=== PATIENT | male | born 1995 | race Caucasian/White ===

== ENCOUNTER → 2019-10-25 11:02 | Outpatient (BNVA) | payer SELFPAY | PROVIDERS: Family Provider Family Medicine; PCP Family Medicine; Visit Provider Nurse Practitioner Family | DX: J32.9 Chronic sinusitis, unspecified (principal) | CPT/HCPCS: 87081; 87880 ==

== ENCOUNTER → 2020-06-09 11:14 | Outpatient (BNVA) | payer OTHER, SELFPAY | PROVIDERS: Family Provider Family Medicine; PCP Family Medicine; Visit Provider Nurse Practitioner Family | DX: Z11.59 Encounter for screening for other viral diseases (principal) | CPT/HCPCS: 87635 ==

== ENCOUNTER → 2020-06-13 11:44 | Outpatient (BNVA) | payer OTHER, SELFPAY | PROVIDERS: Family Provider Family Medicine; PCP Family Medicine | DX: Z11.59 Encounter for screening for other viral diseases (principal) | CPT/HCPCS: 87635 ==

== ENCOUNTER → 2020-07-24 11:07 | Outpatient (BNVA) | payer OTHER, SELFPAY | PROVIDERS: Family Provider Family Medicine; PCP Family Medicine; Visit Provider Nurse Practitioner Family | DX: Z20.828 Contact with and (suspected) exposure to other viral communicable diseases (principal); J06.9 Acute upper respiratory infection, unspecified | CPT/HCPCS: 87635 ==

== ENCOUNTER → 2021-03-06 14:08 | Outpatient (BNVA) | payer OTHER, SELFPAY | PROVIDERS: Family Provider Family Medicine; PCP Family Medicine; Visit Provider Nurse Practitioner | DX: Z20.822 Contact with and (suspected) exposure to COVID-19 (principal); B34.9 Viral infection, unspecified | CPT/HCPCS: 87635 ==

== ENCOUNTER 2022-06-26 13:05 | Emergency (ER) | payer SELFPAY ==
[2022-06-26 13:09] VITALS: BP 151/95; PULSE 110; RESP 12; TEMP 36.8; O2SAT 97; BMI 35.2
--- NOTE | 2022-06-26 13:32 | USR_ITS ---
US/US soft tissue/extremity [id number] PROCEDURE INFORMATION: Exam: US Unlisted Ultrasound Procedure Exam date and time: 06/26/2022 1:53 PM Age: 27 years old Clinical indication: Symptoms: Pain, swelling, redness lt groin; Additional info: Swelling left groin TECHNIQUE: Imaging protocol: Unlisted ultrasound procedure (eg, diagnostic, interventional). COMPARISON: No relevant prior studies available. FINDINGS: Procedural imagin.7 x 1.1 x 0.4 cm low-density lesion in the left groin with no internal vascularity with some intrinsic fluid movement on cine images consistent with fluid collection with or without infection. IMPRESSION: 1.7 x 1.1 x 0.4 cm low-density lesion in the left groin with no internal vascularity with some intrinsic fluid movement on cine images most consistent with fluid collection with or without infection.
--- NOTE | 2022-06-26 13:40 | W.ED.GENADLT ---
HPI - General Adult General: Chief complaint: General Medical Stated complaint: Knot in groin area, phillip Time Seen by Provider: 06/26/22 13:26 History of Present Illness: 27-year-old male presents with swelling/knot in the left groin area. He reports that he has had in the past that resolved. That it started, small couple days ago and is now enlarged. Reports that now it seems little bit more red and painful. Patient initially thought maybe it was a swollen lymph node but is now unsure what it might be. Associated symptoms: Deny chest pain, dyspnea, headache(s), nausea, palpitations or vomiting Review of Systems Const: Denies: fever(s) Card: Denies: chest pain or palpitations Resp: Denies: dyspnea or productive cough GI: Denies: abdominal pain, nausea or vomiting : Denies: flank pain, difficulty urinating or dysuria Musc: Denies: extremity pain or extremity swelling Skin/Breast: Reports: erythema, skin swelling and other (Please see HPI) Neuro: Denies: headache(s) or dizziness Psych: Denies: anxiety or depression PFS ED PFSH: Medical History Generalized anxiety disorder Social History Smoking and tobacco status: current every day smoker Alcohol intake: never Physical Exam Const: COMMON NORMALS: no acute distress, patient oriented x3 and healthy appearing HENMT: COMMON NORMALS: hearing grossly normal bilaterally and moist oral mucous membranes Resp: COMMON NORMALS: normal respiratory effort, No use of accessory muscles and clear to auscultation bilaterally EFFORT & INSPECTION: Yes able to speak in complete sentences AUSCULTATION: clear to auscultation bilaterally Cardio: COMMON NORMALS: regular rhythm RATE: tachycardic RHYTHM: regular rhythm GI: COMMON NORMALS: Normal to inspection, nondistended, normoactive bowel sounds present, Soft to palpation and non-tender PALPATION: Yes Soft to palpation Extremity: COMMON NORMALS: normal to inspection and full ROM Neuro: COMMON NORMALS: patient oriented x3 Psych: COMMON NORMALS: mental status grossly normal, Normal thought process present, cooperative and normal affect THOUGHT PROCESS: Normal thought process present Skin: OTHER: Approximate 2.5 cm by 0.5 centimeter swelling/nodule that is firm freely movable questionable induration with some mild erythema over the skin Course Vital Signs: Vital signs: Vital Signs Temperature 98.3 F 06/26/22 13:09 Pulse Rate 110 H 06/26/22 13:09 Respiratory Rate 12 06/26/22 13:09 Blood Pressure 151/95 06/26/22 13:09 Pulse Oximetry 97 06/26/22 13:09 Oxygen Delivery Me thod 06/26/22 13:09 MDM - General Adult Medical Decision Making Patient with 1.7 x 1 cm low-density fluid collection in the left groin. At this time it does not appear to be an abscess. Discussed treatment options of I&D versus antibiotics and outpatient follow-up. We will start patient on antibiotics have good outpatient follow-up with warm compress. He reports that he has had this on and off in the past and has had swollen lymph node in this area before. Patient should return to the ER if symptoms get significantly worse. He is stable discharged home Lab Data Radiology Impressions Soft Tissue Ultrasound 06/26/22 13:32 PROCEDURE INFORMATION: Exam: US Unlisted Ultrasound Procedure Exam date and time: 06/26/2022 1:53 PM Age: 27 years old Clinical indication: Symptoms: Pain, swelling, redness lt groin; Additional info: Swelling left groin TECHNIQUE: Imaging protocol: Unlisted ultrasound procedure (eg, diagnostic, interventional). COMPARISON: No relevant prior studies available. FINDINGS: Procedural imagin.7 x 1.1 x 0.4 cm low-density lesion in the left groin with no internal vascularity with some intrinsic fluid movement on cine images consistent with fluid collection with or without infection. IMPRESSION: 1.7 x 1.1 x 0.4 cm low-density lesion in the left groin with no internal vascularity with some intrinsic fluid movement on cine images most consistent with fluid collection with or without infection. Discharge Plan Discharge Patient Disposition: Home Clinical Impression: Groin fluid collection Condition: Stable Prescriptions: New clindamycin HCl 300 mg capsule 300 mg PO TID 7 Days Qty: 21 0RF No Action citalopram 40 mg tablet 40 mg PO DAILY 60 Days Qty: 60 1RF Discharge Orders: Discharge ED (Routine); Ordered 06/26/22 Ordered By: Alban Sadler Referrals: Teresa Reyes MD [Primary Care Provider] - Discharge Diet: Usual diet Discharge Activity: Resume usual activity Patient Instructions: Soft Tissue Mass (ED), Opioid Safety, Pain Management Activity Restrictions/Additional Instructions: Warm compress for 10 to 15 minutes 3-4 times daily. Follow-up with your primary care provider in 4 to 5 days for recheck of your symptoms. Return to the ER if it gets significantly worse or any other concerns. Coding Level of Care Code ED Survey And Mapping Technician for Jayg Fwd Exam Detailed
== END 2022-06-26 15:38 | disposition home or self-care (01) ==
PROVIDERS: Emergency Provider Student in an Organized Health Care Education/Training Program; PCP Family Medicine
DX: R60.0 Localized edema (principal); F17.210 Nicotine dependence, cigarettes, uncomplicated
CPT/HCPCS: 76882; 99284

== ENCOUNTER 2022-08-10 16:05 | Emergency (ER) | payer SELFPAY ==
[2022-08-10 16:27] VITALS: BP 160/97; PULSE 106; RESP 18; TEMP 37.7; O2SAT 97
--- NOTE | 2022-08-10 17:07 | XRR_ITS ---
PROCEDURE INFORMATION: Exam: XR Right Ribs Exam date and time: 08/10/2022 5:19 PM Age: 27 years old Clinical indication: Chest wall pain; Right; Additional info: Fall with rib pain TECHNIQUE: Imaging protocol: Radiologic exam of the Right ribs. Views: 2 views. COMPARISON: No relevant prior studies available. FINDINGS: Bones/joints: Normal. Soft tissues: Normal. XR/XR ribs RT 2V* [id number] IMPRESSION: No acute findings.
--- NOTE | 2022-08-10 17:56 | ED_ITS ---
HPI - Fall General: Chief Complaint: Fall Stated Complaint: SOB, upper rib pain on right side, Fall Time Seen by Provider: 08/10/22 17:06 History of Present Illness: Patient is in today for right-sided rib pain. He reports that 3 days ago he fell because he tripped. He reports that he fell onto his right side and had his arm up in the air. He reports that he has pain on his right lateral ribs. He states that its been very sore but today was the worst on day 3. He reports that hurts with deep inspiration or palpation. He just wants to make sure that nothing is broken because he has a lot of work coming up. Associated symptoms-after fall: Reports chest pain (Right-sided rib pain with deep inspiration); Denies abdominal pain Review of Systems Const: Denies: fever(s), chills or body aches Card: Reports: chest pain (Right-sided rib pain with deep inspiration); Denies: palpitations or irregular heart rhythm Resp: Reports: pain on inspiration; Denies: dyspnea, productive cough, non-productive cough, wheezing or stridor GI: Denies: abdominal pain, nausea or vomiting : Denies: flank pain, difficulty urinating or dysuria Musc: Reports: other (Right-sided rib pain status post fall) [facility] ED PFSH: Medical History Generalized anxiety disorder Social History Smoking and tobacco status: current every day smoker Alcohol intake: never Physical Exam Const: COMMON NORMALS: no acute distress, patient oriented x3 and alert Neck/C-Spine: COMMON NORMALS: no JVD Chest: OTHER: Tenderness to palpation right lateral upper ribs. No obvious bony deformity or soft tissue deformity palpated. No step-offs appreciated. No bruising noted. Respirations are even and nonlabored. Resp: COMMON NORMALS: normal respiratory effort, No use of accessory muscles and clear to auscultation bilaterally AUSCULTATION: clear to auscultation bilaterally Cardio: COMMON NORMALS: no JVD, regular rate, regular rhythm, S1 normal heart sound present, S2 normal heart sound present and No murmurs present (Cardio) RATE: regular rate RHYTHM: regular rhythm HEART SOUNDS: S1 normal heart sound present and S2 normal heart sound present Neuro: COMMON NORMALS: patient oriented x3 SENSORIUM/ORIENTATION: Yes alert Course Vital Signs: Vital signs: Vital Signs Temperature 99.9 F H 08/10/22 16:27 Pulse Rate 106 H 08/10/22 16:27 Respiratory Rate 18 08/10/22 16:27 Blood Pressure 160/97 08/10/22 16:27 Pulse Oximetry 97 08/10/22 16:27 Oxygen Delivery Me thod 08/10/22 16:27 MDM - Fall Medical Decision Making Differentials include rib contusion, rib fracture, contusion of the chest wall X-ray right side ribs negative for acute findings Advised patient of typical course of healing and conservative treatment at home. Toradol injection provided in here today. Advised patient to not take any more ibuprofen until tomorrow. Encourage splinting with coughing and deep breathing to prevent development of pneumonia. Follow-up with primary care provider as needed. Return to the ER for new or worsening symptoms Lab Data Radiology Impressions Ribs X-Ray 08/10/22 17:07 IMPRESSION: No acute findings. Discharge Plan Discharge Patient Disposition: Home Clinical Impression: Contusion of rib on right side Condition: Stable Prescriptions: No Action clindamycin HCl 300 mg capsule 300 mg PO TID 10 Days Qty: 30 1RF Discharge Orders: Discharge ED (Routine); Ordered 08/10/22 Ordered By: Cecilia Manrique Referrals: Teresa Reyes MD [Primary Care Provider] - Discharge Diet: Usual diet Discharge Activity: Increase activity as tolerated Patient Instructions: Rib Contusion (ED) Activity Restrictions/Additional Instructions: I encouraged rest, ice the area, ibuprofen as needed. Make sure that you are splinting and coughing and deep breathing frequently to prevent development of pneumonia. Follow-up with primary care provider as needed. Return to the ER for new or worsening symptoms Coding Level of Care Code ED Sessions Clerk for Salo Fwd Exam Expanded Problem Focused
[2022-08-10] MEDS: ketorolac 60 mg/2 mL INJ IM (18:05)
== END 2022-08-10 18:07 | disposition home or self-care (01) ==
PROVIDERS: Emergency Provider Nurse Practitioner Family; PCP Family Medicine
DX: S20.211A Contusion of right front wall of thorax, initial encounter (principal); F17.210 Nicotine dependence, cigarettes, uncomplicated; W01.0XXA Fall on same level from slipping, tripping and stumbling without subsequent striking against object, initial encounter
CPT/HCPCS: 71100; 96372; 99284; J1885

== ENCOUNTER → 2024-01-07 11:14 | Outpatient (BNVA) | payer SELFPAY | PROVIDERS: PCP Family Medicine; Visit Provider Emergency Medicine | DX: J02.9 Acute pharyngitis, unspecified (principal) | CPT/HCPCS: 87071; 87880 ==

== ENCOUNTER 2025-01-03 15:58 | Outpatient (CLI) | payer BC, SELFPAY ==
--- NOTE | 2025-01-03 16:30 | CTR_ITS ---
PROCEDURE INFORMATION: Exam: CT Abdomen And Pelvis Without Contrast Exam date and time: 01/03/2025 4:13 PM Age: 29 years old Clinical indication: Ventral hernia. Pain left of umbilicus. Patient states pain is burning and pulling. Ventral hernia TECHNIQUE: Imaging protocol: Computed tomography of the abdomen and pelvis without contrast. Radiation optimization: All CT scans at this facility use at least one of these dose optimization techniques: automated exposure control; mA and/or kV adjustment per patient size (includes targeted exams where dose is matched to clinical indication); or iterative reconstruction. COMPARISON: CR XR ribs RT 2V* [id number] 08/10/2022 5:19 PM RADIATION DOSE METRICS: Total DLP (mGy-cm): 502.83 FINDINGS: Lungs: The lung bases are unremarkable. Heart: No pericardial effusion. Liver: There is focal fatty infiltration along the anterior aspect of the falciform ligament. Gallbladder and biliary ducts: The gallbladder is unremarkable. Pancreas: The pancreas is unremarkable. Spleen: The spleen is enlarged measuring 14.2 cm. Adrenal glands: The adrenal glands are unremarkable. Kidneys and ureters: The kidneys are unremarkable. Stomach and bowel: The stomach and small bowel are unremarkable. The colon is unremarkable. Appendix: The appendix is unremarkable. Intraperitoneal space: No free intraperitoneal air is seen. Vasculature: No abdominal aortic aneurysm. Lymph nodes: No retroperitoneal lymphadenopathy. Urinary bladder: The bladder is unremarkable. Reproductive: The prostate measures 3.4 x 4.4 cm. Bones/joints: No acute fracture is seen. Soft tissues: Tiny fat containing umbilical hernia. This appears uncomplicated. No hernia. CT/CT abdomen pelvis wo con [id number] IMPRESSION: 1. Tiny fat containing umbilical hernia. This appears uncomplicated. 2. Splenomegaly.
== END 2025-01-03 15:59 | disposition home or self-care (01) ==
LOC: RAD 16:01
PROVIDERS: PCP Family Medicine; Visit Provider Surgery
DX: R10.9 Unspecified abdominal pain (principal); K43.9 Ventral hernia without obstruction or gangrene; R16.1 Splenomegaly, not elsewhere classified
CPT/HCPCS: 74176